=== PATIENT | male | born 1965 | race Caucasian/White ===

== ENCOUNTER 2017-01-04 13:55 | Emergency (ER) | payer OTHER ==
[~2017-01-04] VITALS: Ht 177.8 cm; Wt 68.0 kg
[2017-01-04 14:06] VITALS: BP 137/96
--- NOTE | 2017-01-04 14:30 | ED INFLUENZA/URI COMPLAINT ---
History of Present Illness General Chief Complaint: General Adult Stated Complaint: THROAT PAIN Source: patient, old records Exam Limitations: no limitations Vital Signs & Intake/Output Vital Signs & Intake/Output Vital Signs Date Time Temp Pulse Resp B/P Pulse O2 O2 Flow FiO2 Ox Delivery Rate 01/04 1406 96.1 77 20 137/96 97 Room Air Room Air Allergies Coded Allergies: No Known Allergies (01/04/17) Reconcile Medications Amoxicillin/Potassium Clav (Augmentin 875-125 Tablet) 875 MG-125 MG TABLET 1 TAB PO BID pharyngitis Ibuprofen 800 MG TABLET 1 TAB PO TID PRN pain Levothyroxine Sodium (Synthroid) 88 MCG TABLET 1 TAB PO DAILY hypothyroid Triage Note: PT TO ED WITH C/O LEFT THROAT PAIN TO LEFT EAR AND LEFT HEAD X 3 DAYS. Triage Nurses Notes Reviewed? yes Onset: Gradual Duration: day(s): (3), constant Timing: recent history Severity: mild Severity Numbers: 5 Prior Episodes/Possible Cause: occassional episodes No Modifying Factors: none Associated Symptoms: earache, sore throat HPI: This is a 51-year-old male with history of hypothyroid presents emergency room complaining of left-sided throat pain left ear pain for the past 3 days associated congestion. Patient denies fevers or chills. He is not taken anything for his symptoms. No cough shortness of breath. He denies chest pain abdominal pain nausea vomiting. No modifying factors or associated symptoms otherwise. Pain is aching/ fullness. Patient is also requesting a refill of his Synthroid which he recently ran out of and states he has been unable to follow-up with his primary care physician for the same. Patient denies needing any other medication refills. (JULIOCESAR HAJI) Past History Travel History Traveled to [place] past 21 day No Medical History Any Pertinent Medical History? see below for history Neurological: NONE EENT: NONE Cardiovascular: NONE Respiratory: NONE Gastrointestinal: NONE Hepatic: hepatitis C Renal: NONE Musculoskeletal: NONE Psychiatric: NONE Endocrine: hypothyroidism Blood Disorders: NONE Cancer(s): NONE FOOD PROCESSING PLANT MANAGER/Reproductive: NONE Surgical History Surgical History: non-contributory Psychosocial History What is your primary language Khmer Tobacco Use: Current Daily Use Daily Tobacco Use Amount/Type: => 5 Cigarettes daily ETOH Use: occasional use Illicit Drug Use: denies illicit drug use Family History Hx Contributory? No (JULIOCESAR HAJI) Review of Systems Review of Systems Constitutional: Reports: see HPI. All Other Systems: Reviewed and Negative Comments Review of systems: See HPI, All other systems negative. Constitutional, no chills no fever, no malaise HEENT: no sore throat no congestion Cardiovascular: No chest pain , no palpitation Skin, no jaundice no rashes, no change in skin Respiratory: No dyspnea no cough no sputum GI: No nausea no vomiting : No dysuria Muscle skeletal: No joint pain, no back pain, no neck pain, Neurologic: No numbness no headache Psych: No stress Heme/endocrine: No bruising no bleeding Immunology: No lymphadenopathy (JULIOCESAR HAJI) Physical Exam Physical Exam General Appearance: well developed/nourished, alert, awake Ears, Nose, Throat: hearing grossly normal, Tympanic normal Comments: Well-developed well-nourished patient in no apparent distress. Head/Face: Atraumatic, no maxillary/frontal sinus tenderness, no facial swelling Eyes: PERRL, EOMI, no conjunctival injection. No nystagmus Ear:External auditory canal and Tympanic membranes clear, no erythema, no FB. Nose: atraumatic.Normal inspection: No bleeding, no septal hematoma Throat: Moist mucous membranes.mild pharyngeal erythema no exudate no trismus no stridor/drooling or assymetry. No swelling or edema. Neck: Supple, no lymphadenopathy, FROM no palpable thyromegaly Back: FROM, Nontender Cardiovascular: Regular rate and rhythms no murmurs rubs or gallops, Respiratory: Chest nontender.There were no bony deformities, no asymmetry. No respiratory distress. Patient speaking in full complete sentences. Breath sounds clear to auscultation bilaterally: NO W/R/R Extremities: full range of motion Neuro: Alert and oriented x3 Skin: Warm & dry;No appreciable rash on exposed skin Psych: Mood affect normal, normal memory normal judgment. Core Measures Severe Sepsis Present: No Septic Shock Present: No (JULIOCESAR HAJI) Progress Differential Diagnosis: influenza, otitis, pneumonia, pharyngitis, sinusitis, mono Plan of Care: Orders Procedure Date/time Status THROAT CULTURE W/QUICK STREP 01/04 1408 Active Discussed with patient his throat sore results E for supportive care, Motrin Augmentin ibuprofen provided patient was also requesting refill of his Synthroid which was provided advised close. His primary care physician return with any concerns he feels comfortable with plan (JULIOCESAR HAJI) Initial ED EKG: none (JULIOCESAR HAJI) Departure Departure Time of Disposition: 1435 Disposition: HOME OR SELF CARE Condition: Stable Clinical Impression Primary Impression: Pharyngitis Secondary Impressions: Medication refill Referrals: PATIENT HAS NO PRIMARY CARE DR (PCP/Family) Additional Instructions: Augmentin ibuprofen as directed. Follow-up with your primary care physician for future refills. Synthroid as directed these prescriptions were sent to the [facility] pharmacy. Departure Forms: Customer Survey General Discharge Information Prescriptions: Current Visit Scripts Amoxicillin/Potassium Clav (Augmentin 875-125 Tablet) 1 TAB PO BID #14 TAB Ibuprofen 1 TAB PO TID PRN pain #30 TAB Levothyroxine Sodium (Synthroid) 1 TAB PO DAILY #30 TAB (JULIOCESAR HAJI) PA/FULFILLMENT SPECIALIST Co-Sign Statement Statement: ED Attending supervision documentation- [] I saw and evaluated the patient. I have also reviewed all the pertinent lab results and diagnostic results. I agree with the findings and the plan of care as documented in the PA's/FULFILLMENT SPECIALIST's documentation. [X] I have reviewed the ED Record and agree with the PA's/FULFILLMENT SPECIALIST's documentation. [] Additions or exceptions (if any) to the PAs/FULFILLMENT SPECIALIST's note and plan are summarized below: [] (EMANUEL DAWSON,JOLLY Teague)
[2017-01-04] MEDS ORDERED: SYNTHROID88 MCG PO (14:37)
[2017-01-04] MEDS ORDERED: IBUPROFEN800 M1 PO (14:37)
[2017-01-04] MEDS ORDERED: AUGMENTIN 875-1 EACH PO (14:37)
== END 2017-01-04 14:45 ==
LOC: ERH 13:55
DX: J02.9 Acute pharyngitis, unspecified (principal); Z76.0 Encounter for issue of repeat prescription; Z72.0 Tobacco use
CPT/HCPCS: J3490

== ENCOUNTER 2017-03-21 23:02 | Emergency (ER) | payer OTHER ==
[~2017-03-21] VITALS: Ht 177.8 cm; Wt 63.5 kg
[~2017-03-21 23:02] MED LIST: AUGMENTIN 875-1 EACH PO; IBUPROFEN800 M1 PO; SYNTHROID88 MCG PO
[2017-03-21 23:24] VITALS: BP 146/99
--- NOTE | 2017-03-21 23:30 | ED MVC/FALL/TRAUMA COMPLAINT ---
History of Present Illness General Chief Complaint: General Adult Stated Complaint: LEFT SIDE RIBS PAIM Source: patient, old records Exam Limitations: no limitations Vital Signs & Intake/Output Vital Signs & Intake/Output Vital Signs Date Time Temp Pulse Resp B/P B/P Pulse O2 O2 Flow FiO2 Mean Ox Delivery Rate 03/21 2342 97 Room Air 03/21 2324 98.2 91 18 146/99 97 Room Air ED Intake and Output 03/22 0000 03/21 1200 Intake Total Output Total Balance Patient 140 lb Weight Weight Reported by Patient Measurement Method Allergies Coded Allergies: No Known Allergies (01/04/17) Reconcile Medications Amoxicillin/Potassium Clav (Augmentin 875-125 Tablet) 875 MG-125 MG TABLET 1 TAB PO BID pharyngitis Ibuprofen 800 MG TABLET 1 TAB PO TID PRN pain Levothyroxine Sodium (Synthroid) 88 MCG TABLET 1 TAB PO DAILY hypothyroid Oxycodone HCl/Acetaminophen (Percocet 5-325 MG Tablet) 5 MG-325 MG TABLET 1 TAB PO BID PRN pain Triage Note: S/P FALL YESTERDAY INJURY RIBS ON LT SIDE O2 SAT RA 97% WORSE WITH MOVEMENT ,COUGH,DEEP BREATH Triage Nurses Notes Reviewed? yes Onset: Abrupt Duration: day(s): (2), constant Timing: recent history Severity: moderate Severity Numbers: 7 Injuries/Fall Location: chest Method of Injury: fall Loss of Consciousness: no loss of consciousness Modifying Factors: Worsens With: breathing, coughing. Associated Symptoms: denies HPI: 52-year-old male presents to ER for evaluation complaining of left sided chest pain rib pain that came on after he states he tripped over a tree stump causing him to fall and strike the left side of his chest and ribs yesterday afternoon. He states since then he said moderate aching severe pain worse with coughing breathing. He denies shortness of breath cough hemoptysis. No abdominal pain nausea vomiting diarrhea no hematuria he did not his head there is no loss of consciousness no neck back arm or leg pain. He is not taken anything for his pain (JESENIA MILNER,JULIOCESAR) Past History Travel History Traveled to [place] past 21 day No Medical History Any Pertinent Medical History? see below for history Neurological: NONE EENT: NONE Cardiovascular: NONE Respiratory: NONE Gastrointestinal: NONE Hepatic: hepatitis C Renal: NONE Musculoskeletal: NONE Psychiatric: NONE Endocrine: hypothyroidism Blood Disorders: NONE Cancer(s): NONE GENERAL SCRAP WORKER/Reproductive: NONE Surgical History Surgical History: non-contributory Psychosocial History What is your primary language Nigerian Tobacco Use: Current Daily Use Daily Tobacco Use Amount/Type: => 5 Cigarettes daily Family History Hx Contributory? No (JULIOCESAR HAJI) Review of Systems Review of Systems Constitutional: Reports: see HPI. All Other Systems: Reviewed and Negative Comments Review of systems: See HPI, All other systems negative. Constitutional, no chills no fever, no malaise HEENT: No visual changes no sore throat no congestion Cardiovascular: No chest pain , no palpitation Skin: no rashes, no change in skin Respiratory: No dyspnea no cough no sputum GI: No nausea no vomiting, no diarrhea, Muscle skeletal: No joint pain, no joint swelling, no back pain, no neck pain, Neurologic: No numbness no headache Psych: No stress Heme/endocrine: No bruising Immunology: No lymphadenopathy (JULIOCESAR HAJI) Physical Exam Physical Exam General Appearance: well developed/nourished, alert, awake Comments: Well-developed well-nourished patient in no apparent distress. HEENT: Atraumatic, extraocular motion intact Neck: Supple, FROM Back: FROM nontender Cardiovascular: Regular rate and rhythms no murmurs rubs or gallops, Respiratory: Chest tender to palpation over the left AXILLA There were no bony deformities, no asymmetry. No respiratory distress. Patient speaking in full complete sentences. Breath sounds clear to auscultation bilaterally: NO W/R/R Abdomen: Soft nontender no palpable splenomegaly no ecchymosis Extremities: full range of motion Neuro: awake, alert, and oriented to person, place and time. There were no obvious focal neurologic abnormalities. Skin: Warm & dry;No appreciable rash on exposed skin Psych: Mood affect normal, normal memory normal judgment. Core Measures ACS in differential dx? No Severe Sepsis Present: No Septic Shock Present: No (JULIOCESAR HAJI) Progress Differential Diagnosis: abd injury, pnemothorax, rib fracture contusion sprain Plan of Care: Orders Procedure Date/time Status XRY-RIBS UNILATERAL-LEFT 03/210 Active Current Medications Sig/Caren Start time Last Medication Dose Stop Time Status Admin Oxycodone/ 1 TAB ONCE ONE 03/21 2345 AC Acetaminophen 03/21 2346 (Percocet) Patient medicated Percocet I discussed with the patient at length all of their results. I had an extensive conversation regarding need for close follow up with their primary care physician this week as well as return precautions. I answered all of their questions, they feel comfortable with the plan and follow-up care. I discussed with the patient/family the medications that they will receive. I gave them signs and symptoms that could indicate an adverse reaction. I have advised them to limit their activities until they can see how they respond to the medication. (JULIOCESAR HAJI) Diagnostic Imaging: Viewed by Me: Radiology Read. Discussed w/RAD: Radiology Read. Radiology Impression: PATIENT: ZAK ALAS PRESENT AGE: 52 PATIENT ACCOUNT NO: [id number] : 64 LOCATION: [facility] ORDERING PHYSICIAN: JULIOCESAR MILNER SERVICE DATE: 03/21/17 EXAM TYPE: RAD - XRY- RIBS UNILATERAL-LEFT EXAMINATION: XR RIBS, LEFT CLINICAL INFORMATION: Fall with pain COMPARISON: 11/03/2013 TECHNIQUE: PA view of the chest. 4 additional views of the left ribs. FINDINGS: Lungs are clear. No consolidation, pneumothorax, or pleural effusion. The cardiomediastinal silhouette and pulmonary vasculature are normal. Osseous structures are unremarkable. Ribs are intact. No fractures are identified. IMPRESSION: Clear lungs. No rib fracture identified. DICTATED BY: ASHISH LEE MD DATE/TIME DICTATED:03/21/172357 MAIL HANDLERS SUPERVISOR: SIDDHARTHA DATE/TIME TRANSCRIBED:03/21/172357 CONFIDENTIAL, DO NOT COPY WITHOUT APPROPRIATE AUTHORIZATION. <Electronically signed in Other Vendor System> SIGNED BY: ASHISH LEE MD 03/22/17 0003 (JULIOCESAR HAJI) Departure Departure Disposition: HOME OR SELF CARE Condition: Stable Clinical Impression Primary Impression: Rib contusion Referrals: PATIENT HAS NO PRIMARY CARE DR (PCP/Family) Additional Instructions: Rest ice Tylenol Motrin for pain Percocet for breakthrough pain this is a narcotic addictive no driving drinking alcohol while taking. Follow-up with your primary care physician return with any concerns Departure Forms: Customer Survey General Discharge Information Prescriptions: Current Visit Scripts Oxycodone HCl/Acetaminophen (Percocet 5-325 MG Tablet) 1 TAB PO BID PRN pain #10 TAB (JULIOCESAR HAJI) PA/AFTERSCHOOL Co-Sign Statement Statement: ED Attending supervision documentation- [] I saw and evaluated the patient. I have also reviewed all the pertinent lab results and diagnostic results. I agree with the findings and the plan of care as documented in the PA's/AFTERSCHOOL's documentation. [x] I have reviewed the ED Record and agree with the PA's/AFTERSCHOOL's documentation. [] Additions or exceptions (if any) to the PAs/AFTERSCHOOL's note and plan are summarized below: [] (NEENA DAWSON,RUSH Ayala)
[2017-03-21] MEDS ORDERED: PERCOCET 5-3251 EACH PO (23:39)
--- NOTE | 2017-03-22 00:03 | RADIOLOGY REPORT ---
EXAMINATION: XR RIBS, LEFT CLINICAL INFORMATION: Fall with pain COMPARISON: 11/03/2013 TECHNIQUE: PA view of the chest. 4 additional views of the left ribs. FINDINGS: Lungs are clear. No consolidation, pneumothorax, or pleural effusion. The cardiomediastinal silhouette and pulmonary vasculature are normal. Osseous structures are unremarkable. Ribs are intact. No fractures are identified. IMPRESSION: Clear lungs. No rib fracture identified.
== END 2017-03-22 ==
LOC: ERH 23:02
DX: S20.219A Contusion of unspecified front wall of thorax, initial encounter (principal); W18.09XA Striking against other object with subsequent fall, initial encounter; Y92.9 Unspecified place or not applicable; Y93.9 Activity, unspecified
CPT/HCPCS: 71100-LT